=== PATIENT | female | born 1980 | race American Indian/Alaskan Native ===

== ENCOUNTER 2016-06-07 14:55 | Emergency (ER) | payer OTHER ==
[2016-06-07] MEDS ORDERED: TYLENOL ONE (17:10)
[2016-06-07] MEDS ORDERED: TYLENOL PO ONE (17:11)
--- NOTE | 2016-06-07 19:57 | Emergency Department Report ---
ED Fever HPI - General Chief Complaint: Fever Stated Complaint: FLU SYMPTOMS Time Seen by Provider: 06/07/16 19:52 Source: patient - History of Present Illness Initial Comments: 35-year-old female comes in with complaint of productive cough with thick chunky mucus since last night. She reports that her cold-like symptoms started Friday but has gotten worse now. She complains of achy all over chills fever body hurts she complains of chest pressure when she coughs. She's tried taking DayQuil and halls without much relief. She denies any vomiting admits to diarrhea. She did not get her flu vaccination this year. Timing/Duration: getting worse Fever Severity/Quality: greater than 100.5 F Fever Therapy [facility] ASSISTANT DIRECTOR: cold remedies, Tylenol Associated Symptoms: cough, headache, muscle aches ED Review of Systems ROS: Stated complaint: FLU SYMPTOMS Other details as noted in HPI ED Past Medical Hx - Surgical History Additional Surgical History: Leep - Social History Smoking Status: Never Smoker Substance Use Type: Alcohol - Medications Home Medications: Home Medications Medication Instructions Recorded Confirmed Last Taken Type Levothyroxine [Synthroid] 50 mcg PO QAM 09/28/13 09/28/13 09/28/13 07:00 History HYDROcodone/APAP 7.5-325 [[place] 1 each PO Q6HR PRN #20 tablet 09/29/13 Unknown Rx 7.5/325 mg] Sulfamethoxazole/Trimethoprim 1 each PO BID #20 tablet 09/29/13 Unknown Rx [Bactrim Ds] Azithromycin [Zithromax] 250 mg PO QDAY #6 tablet 06/07/16 Unknown Rx Brompheniramine/Pseudoephed/Dm 10 ml PO QID PRN #118 ml 06/07/16 Unknown Rx [Bromfed Dm Cough Syrup] Ibuprofen [Motrin 600 MG tab] 600 mg PO Q8H PRN #60 tablet 06/07/16 Unknown Rx ED Physical Exam - General Limitations: No Limitations General appearance: alert, in no apparent distress - Head Head exam: Present: atraumatic, normocephalic - Eye Eye exam: Present: normal appearance Pupils: Present: normal accommodation - ENT ENT exam: Present: mucous membranes moist, TM's normal bilaterally - Neck Neck exam: Present: normal inspection, full ROM. Absent: tenderness, lymphadenopathy - Respiratory Respiratory exam: Present: normal lung sounds bilaterally. Absent: respiratory distress, wheezes, rales, rhonchi - Cardiovascular Cardiovascular Exam: Present: regular rate, normal rhythm, normal heart sounds - GI/Abdominal GI/Abdominal exam: Present: soft. Absent: distended, tenderness ED Course Vital Signs 06/07/16 06/07/16 06/07/16 17:06 17:12 20:01 Temperature 101.9 F H 98.6 F Pulse Rate 81 73 Respiratory 18 21 14 Rate Blood Pressure 121/69 Blood Pressure 115/65 [Left] O2 Sat by Pulse 98 97 Oximetry ED Medical Decision Making - Medical Decision Making Patient has been evaluated by this provider in fast track. We will send a swab for rapid influenza. Patient declines any Motrin at this time she was given Tylenol in triage. Critical care attestation.: If time is entered above; I have spent that time in minutes in the direct care of this critically ill patient, excluding procedure time. ED Disposition Clinical Impression: URI, acute Disposition: DISCHARGED TO HOME OR SELFCARE Is pt being admited?: No Does the pt Need Aspirin: No Condition: Stable Instructions: Upper Respiratory Infection (ED) Additional Instructions: Your Flu test was negative. Complete antibiotics as prescribed. Drink plenty of fluids ibuprofen or Tylenol for pain and fever control. Prescriptions: Brompheniramine/Pseudoephed/Dm [Bromfed Dm Cough Syrup] 10 ml PO QID PRN #118 ml PRN Reason: Cough Ibuprofen [Motrin 600 MG tab] 600 mg PO Q8H PRN #60 tablet PRN Reason: Pain Azithromycin [Zithromax] 250 mg PO QDAY #6 tablet Referrals: GARRISON GUERRA MD [Staff Physician] - 3-5 Days Forms: Work/School Release Form(ED)
[2016-06-07 20:11] VITALS: BP 115/65
== END 2016-06-07 22:07 | disposition home or self-care (01) ==
LOC: ED 14:55
DX: J06.9 Acute upper respiratory infection, unspecified (principal)
CPT/HCPCS: 87400; 99282

== ENCOUNTER 2019-01-31 01:04 | Emergency (ER) | payer OTHER ==
[2019-01-31 01:13] VITALS: BP 158/75
[2019-01-31] MEDS ORDERED: ROCEPHIN IM STA (04:49)
[2019-01-31] MEDS ORDERED: ZITHROMAX PO STA (04:49)
[2019-01-31] MEDS ORDERED: XYLOCAINE 1% MPF 5 mL INFILTRATI ONE (04:49)
--- NOTE | 2019-01-31 04:50 | Emergency Department Report ---
ED Female HPI - General Chief complaint: Urogenital-Female Stated complaint: POSSIBLE STD Time Seen by Provider: 01/31/19 04:30 Source: patient Mode of arrival: Ambulatory Limitations: No Limitations - History of Present Illness Initial comments: She was informed by a boyfriend that he was treated for possible chlamydia or gonorrhea, although this test was not confirmed. She reports me asymptomatic and only been active with one partner but presents to the ER so she can also be checked and treated as well. Denies any abdominal pain, vaginal discharge, vaginal bleeding, dysuria, hematuria, fever, chills, sweats, flank pain - Related Data Home Medications Medication Instructions Recorded Confirmed Last Taken Levothyroxine [Synthroid] 50 mcg PO QAM 09/28/13 09/28/13 09/28/13 07:00 Previous Rx's Medication Instructions Recorded Last Taken Type HYDROcodone/APAP 7.5-325 [[place] 1 each PO Q6HR PRN #20 tablet 09/29/13 Unknown Rx 7.5/325 mg] Sulfamethoxazole/Trimethoprim 1 each PO BID #20 tablet 09/29/13 Unknown Rx [Bactrim Ds] Azithromycin [Zithromax] 250 mg PO QDAY #6 tablet 06/07/16 Unknown Rx Brompheniramine/Pseudoephed/Dm 10 ml PO QID PRN #118 ml 06/07/16 Unknown Rx [Bromfed Dm Cough Syrup] Ibuprofen [Motrin 600 MG tab] 600 mg PO Q8H PRN #60 tablet 06/07/16 Unknown Rx metroNIDAZOLE [Flagyl] 2,000 mg PO ONCE #4 tablet 01/31/19 Unknown Rx Allergies Allergy/AdvReac Type Severity Reaction Status Date / Time No Known Allergies Allergy Verified 06/07/16 17:10 ED Review of Systems ROS: Stated complaint: POSSIBLE STD Other details as noted in HPI Comment: All other systems reviewed and negative ED Past Medical Hx - Past Medical History Previous Medical History?: No - Surgical History Past Surgical History?: Yes Additional Surgical History: Leep - Social History Smoking Status: Former Smoker Substance Use Type: Alcohol - Medications Home Medications: Home Medications Medication Instructions Recorded Confirmed Last Taken Type Levothyroxine [Synthroid] 50 mcg PO QAM 09/28/13 09/28/13 09/28/13 07:00 History HYDROcodone/APAP 7.5-325 [[place] 1 each PO Q6HR PRN #20 tablet 09/29/13 Unknown Rx 7.5/325 mg] Sulfamethoxazole/Trimethoprim 1 each PO BID #20 tablet 09/29/13 Unknown Rx [Bactrim Ds] Azithromycin [Zithromax] 250 mg PO QDAY #6 tablet 06/07/16 Unknown Rx Brompheniramine/Pseudoephed/Dm 10 ml PO QID PRN #118 ml 06/07/16 Unknown Rx [Bromfed Dm Cough Syrup] Ibuprofen [Motrin 600 MG tab] 600 mg PO Q8H PRN #60 tablet 06/07/16 Unknown Rx metroNIDAZOLE [Flagyl] 2,000 mg PO ONCE #4 tablet 01/31/19 Unknown Rx ED Physical Exam - General Limitations: No Limitations General appearance: alert, in no apparent distress - Head Head exam: Present: atraumatic, normocephalic - Eye Eye exam: Present: normal appearance, PERRL, EOMI. Absent: scleral icterus, conjunctival injection Pupils: Present: normal accommodation - ENT ENT exam: Present: normal exam, normal orophraynx, mucous membranes moist, TM's normal bilaterally - Neck Neck exam: Present: normal inspection, tenderness, full ROM - Respiratory Respiratory exam: Present: normal lung sounds bilaterally. Absent: respiratory distress, wheezes, rales, chest wall tenderness, accessory muscle use - Cardiovascular Cardiovascular Exam: Present: regular rate, normal rhythm. Absent: systolic murmur, diastolic murmur, rubs, gallop - GI/Abdominal GI/Abdominal exam: Present: soft, normal bowel sounds - Extremities Exam Extremities exam: Present: normal inspection - Back Exam Back exam: Present: normal inspection - Neurological Exam Neurological exam: Present: alert, oriented X3 - Psychiatric Psychiatric exam: Present: normal affect, normal mood - Skin Skin exam: Present: warm, dry, intact, normal color. Absent: rash ED Course Vital Signs 01/31/19 01:10 Temperature 98.3 F Pulse Rate 97 H Respiratory 18 Rate Blood Pressure 158/75 O2 Sat by Pulse 99 Oximetry Critical care attestation.: If time is entered above; I have spent that time in minutes in the direct care of this critically ill patient, excluding procedure time. ED Disposition Clinical Impression: Bacterial vaginosis, Possible exposure to STD Disposition: - TO HOME OR SELFCARE Is pt being admited?: No Does the pt Need Aspirin: No Condition: Stable Instructions: Bacterial Vaginosis (ED) Additional Instructions: He has been cover for chlamydia and gonorrhea as well. Please be sure to [id number] test results. Bloody. Laboratory data did show bacteria vaginosis which will be treated with the Flagyl prescription to take the medication as prescribed Prescriptions: metroNIDAZOLE [Flagyl] 2,000 mg PO ONCE #4 tablet Referrals: PRIMARY CARE, [Primary Care Provider] - 3-5 Days Forms: STI Treatment and Prevention
== END 2019-01-31 06:44 | disposition home or self-care (01) ==
LOC: ED 01:04
DX: N76.0 Acute vaginitis (principal); Z87.891 Personal history of nicotine dependence; Z79.899 Other long term (current) drug therapy
CPT/HCPCS: 87210; 87591; 96372; 99282; J0696

== ENCOUNTER 2020-08-22 14:34 | Emergency (ER) | payer OTHER ==
[2020-08-22 14:45] VITALS: BP 142/76
--- NOTE | 2020-08-22 14:46 | Event Note ---
ED Screening Note Date of service: 08/22/20 Time: 14:44 ED Screening Note: c/o sudden onset of N/V/D x this morning pt sent here from urgent care mild abdominal pain denies PMHx no loss of taste/smell or cough pt appears dehydrated This initial assessment/diagnostic orders/clinical plan/treatment(s) is/are subject to change based on patients health status, clinical progression and re- assessment by fellow clinical providers in the ED. Further treatment and workup at subsequent clinical providers discretion. Patient/guardian urged not to elope from the ED as their condition may be serious if not clinically assessed and managed. Initial orders include: labs fluids likely needed
[2020-08-22 15:10] LABS: Basophils % (Auto) 0.1 % (0.0-1.8); Eosinophils % (Auto) 0.1 % (0.0-4.3); Hematocrit 40.9 % (30.3-42.9); Lymphocytes # (Auto) 0.5 K/mm3 (1.2-5.4); Lymphocytes % (Auto) 4.4 % (13.4-35.0); Mean Corpuscular HGB Conc 34 % (30-34); Mean Corpuscular Volume 92 fl (79-97); Monocytes # (Auto) 0.6 K/mm3 (0.0-0.8); Monocytes % (Auto) 5.8 % (0.0-7.3); Platelet Count 205 K/mm3 (140-440); Red Blood Count 4.44 M/mm3 (3.65-5.03); Red Cell Distribution Width 14.7 % (13.2-15.2)
[2020-08-22 16:00] LABS: Alanine Aminotransferase 11 units/L (7-56); Albumin 3.9 g/dL (3.9-5); BUN/Creatinine Ratio 10; Blood Urea Nitrogen 9 mg/dL (7-17); Calcium 8.8 mg/dL (8.4-10.2)
== END 2020-08-22 23:00 | disposition left against medical advice (07) ==
LOC: ED 14:34
DX: R19.7 Diarrhea, unspecified (principal); Z53.21 Procedure and treatment not carried out due to patient leaving prior to being seen by health care provider
CPT/HCPCS: 36415; 80053; 83690; 84443; 84703; 85025